=== PATIENT | female | born 1975 | race African-American/Black ===

== ENCOUNTER 2020-07-01 13:09 | Observation (INO) | payer SELFPAY, BC ==
[2020-07-01 13:59] LABS: Hemoglobin 4.4 g/dL (12.0-15.5); Mean Corpuscular HGB CONC 26.5 g/dL (32.0-36.0); Mean Corpuscular Volume 64.1 fl (81.6-98.3); RBC Distribution Width 22.8 % (11.5-14.5); Red Blood Cell (RBC) Count 2.59 10x6/uL (3.90-5.03); White Blood Cell (WBC) Count 5.1 10x3/uL (3.5-10.5)
[2020-07-01 14:01] LABS: #Eosinphils 0.2 10x3/uL (0.0-0.5); #Monocytes 0.6 10x3/uL (0.0-1.1); #Neutrophils 3.3 10x3/uL (1.5-8.4); %Basophils 0.6 % (0.0-2.0); %Eosinophils 3.7 % (0.0-6.0); %Monocytes 10.8 % (0.0-10.0); %Neutrophils 64.5 % (40.0-75.0); Platelet Count 166 10x3/uL (150-450)
[2020-07-01 14:07] LABS: ALT (SGPT) 8 U/L (8-55); AST (SGOT) 10 U/L (5-34); Alkaline Phosphatase 66 U/L (40-110); Anion Gap 12 mmol/L (10-20); BUN (Urea Nitrogen) 4 mg/dL (7.0-18.7); Bilirubin, Total 0.6 mg/dL (0.2-1.2); Calc. Creatinine Clearance 0 mL/min (70-130); Calcium 8.5 mg/dL (7.8-10.44); Carbon Dioxide 22 mmol/L (22-29); Chloride 110 mmol/L (98-107); Globulin 3.1 g/dL (2.4-3.5); Glucose 97 mg/dL (70-105); Potassium 3.5 mmol/L (3.5-5.1); Protein, Total 7.1 g/dL (6.0-8.3); Sodium 140 mmol/L (136-145)
[2020-07-01] MEDS ORDERED: Ondansetron ODT 4 MG TAB PO PRN (14:24)
[2020-07-01] MEDS ORDERED: Zolpidem Tartrate 5 MG TAB PO PRN (14:24)
[2020-07-01] MEDS ORDERED: Acetaminophen 325 MG TAB PO PRN (14:24)
[2020-07-01 14:38] LABS: Anisocytosis MODERATE=16-30 cells (100X) (0-5/hpf); Hypochromia MODERATE=16-30 cells (100X) (0-5/hpf); Microcytosis MODERATE=15-30 cells (100X) (0-5/hpf)
[2020-07-01 14:39] LABS: Platelet Morphology Comment Appears Adequate
[2020-07-01 14:42] LABS: Reflex for Review?? YES
[2020-07-01 15:04] LABS: Hemoglobin 4.5 g/dL (12.0-15.5); Platelet Count 173 10x3/uL (150-450)
[2020-07-01] MEDS ORDERED: Tranexamic Acid 650 MG TAB PO SCH (16:00)
[2020-07-01] MEDS ORDERED: medroxyPROGESTERone Acetate 5 MG TAB PO SCH (16:00)
[2020-07-01 18:02] VITALS: BMI 25.4
[2020-07-01] MEDS: Tranexamic Acid 650 MG TAB PO SCH (21:36)
[2020-07-02 01:56] LABS: SARS-CoV-2 PCR by NAA Not Detected (NotDetected)
[2020-07-02 06:40] LABS: Hemoglobin 8.1 g/dL (12.0-15.5); Platelet Count 157 10x3/uL (150-450)
[2020-07-02 07:58] VITALS: BP 139/65; TEMP 98.5
[2020-07-02] MEDS: Tranexamic Acid 650 MG TAB PO SCH (08:12)
[2020-07-02] MEDS ORDERED: medroxyPROGESTERone Acetate 5 MG TAB PO SCH (09:00)
== END 2020-07-02 08:29 | disposition home or self-care (01) ==
LOC: CSHERS 13:09 → INTOOBSV 15:40 → CSHPP 15:40
PROVIDERS: ADMIT Obstetrics & Gynecology; ATTEND Obstetrics & Gynecology
DX: D62 Acute posthemorrhagic anemia (principal); N92.0 Excessive and frequent menstruation with regular cycle; N83.201 Unspecified ovarian cyst, right side; Z20.822 Contact with and (suspected) exposure to COVID-19
CPT/HCPCS: 36430; 76856; 80053; 85014; 85018; 85025; 85049; 85060; 86850; 86900; 86901; 87635; 99285; G0378; P9016; U0003; U0005